=== PATIENT | female | born 1960 | race Hispanic/Latino ===

== ENCOUNTER 2018-11-26 12:30 | Outpatient (CLI) | payer BC ==
--- NOTE | 2018-11-26 14:09 | XRay Report ---
CHEST 2 VIEWS INDICATION: ACUTE URI/COUGH. COMPARISON: None. FINDINGS: Support devices: None. Heart: Normal. Pulmonary vasculature: Normal. Lungs/pleura: Lingular airspace disease with consolidation. The rest of the lungs are clear. No pleur al effusion. No pneumothorax. Additional findings: None. IMPRESSION: Lingular pneumonia with consolidation. Signer Name: Boston Bravo MD Signed: 11/26/2018 2:05 PM Workstation Name: [id number]
== END 2018-11-26 12:31 | disposition home or self-care (01) ==
LOC: SPVIMAG 12:30
PROVIDERS: ATTEND Internal Medicine
DX: J18.1 Lobar pneumonia, unspecified organism (principal)
CPT/HCPCS: 71046